=== PATIENT | female | born 1985 | race Caucasian/White ===

== ENCOUNTER 2016-04-13 23:08 | Emergency (ER) | payer SELFPAY ==
[~2016-04-13] VITALS: Ht 147.3 cm; Wt 52.2 kg
[2016-04-13 23:15] VITALS: BP 140/100; PULSE 71; RESP 16; TEMP 98.2; O2SAT 99
--- NOTE | 2016-04-13 23:20 | NUR ---
Patient to ER bed 08 to gown for evaluation. Side rails up. Report given to JALEN.
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
--- NOTE | 2016-04-13 23:55 | NUR ---
ER MD Richmondaw at bedside for evaluation
--- NOTE | 2016-04-14 00:30 | NUR ---
Patient does not wish to proceed with medical care recommended by ER MD Glover. Patient given information related to possible complications, up to and including , which could occur as a result of leaving hospital at this time. Patient verbalizes understanding of risks involved leaving against medical advice. Patient has signed AMA form.
== END 2016-04-14 00:30 | disposition left against medical advice (07) ==
LOC: SED 23:08
DX: S00.83XA Contusion of other part of head, initial encounter (principal); Z53.20 Procedure and treatment not carried out because of patient's decision for unspecified reasons; V49.40XA Driver injured in collision with unspecified motor vehicles in traffic accident, initial encounter; Y93.89 Activity, other specified; Y99.8 Other external cause status; Y92.89 Other specified places as the place of occurrence of the external cause
CPT/HCPCS: 81025; 99281